=== PATIENT | male | born 1960 | race Caucasian/White ===

== ENCOUNTER → 2019-01-03 | Day surgery (SDC) | payer BC ==
[~2019-01-03] MED LIST: ADVAIR 250-501 EACH; ALENDRONATE SOD70 MG; DIOVAN HCT 3201 EACH PO; FENTANYL CITRATE/PF 100MCG/2 ML INJ ONE; LIDOCAINE HCL 2% LOCAL INJ 5 ML SDV VIAL INJ ONE; METHOTREXATE2.5 MG; METOPROLOL SUCC25 MG; PROPOFOL IV EMULSION 10 MG/ML 50 ML VIAL ONE; VALSARTAN; VICODIN ES 7.51 EACH PO
[2019-01-03 15:13] VITALS: BP 128/79
== END | disposition home or self-care (01) ==
LOC: OR 10:24
PROVIDERS: ATTEND Internal Medicine Gastroenterology
DX: R13.10 Dysphagia, unspecified (principal); D13.0 Benign neoplasm of esophagus; K29.70 Gastritis, unspecified, without bleeding; K31.89 Other diseases of stomach and duodenum; K21.0 Gastro-esophageal reflux disease with esophagitis; K22.8 Other specified diseases of esophagus; K44.9 Diaphragmatic hernia without obstruction or gangrene; Z01.810 Encounter for preprocedural cardiovascular examination
CPT/HCPCS: 43239; 93005; J2001; J2704; J3010; 43235